=== PATIENT | female | born 1965 | race Caucasian/White ===

== ENCOUNTER 2020-06-07 17:28 | Inpatient (IN) | payer BC, OTHER ==
[~2020-06-07] VITALS: Ht 157.5 cm; Wt 104.4 kg
[~2020-06-07 17:28] MED LIST: HYDROCHLOROTH12.5 MG PO; LEVO50TA PO; METO-93 PO
--- NOTE | 2020-06-07 17:28 | NUR ---
INITIAL PT CONTACT. PT PRESENTS TO ED VIA EMS FROM [facility] C/O HYPOXIA AND +COVID. PT STATES SHE GOT +COVID RESULTS TODAY AND HAS BEEN EXPERIENCING A DRY COUGH, MILD SORE THROAT (GONE NOW) AND INTERMITTENT GOLDEN (NOT PRESENT). PT DENIES ANY OTHER COMPLAINTS. PT HYPOXIC ON ROOM AIR AT 81-82%. PT PLACED ON 2L VIA NASAL CANNULA AND O2 SAT INCREASED TO 92%. PT SITTING UPRIGHT ON GURNEY, NAD, VSS. PT DENIES ANY NEEDS AT THIS TIME. CALL LIGHT AND PERSONAL BELONGINGS WITHIN REACH. ERP AT BEDSIDE.
[2020-06-07] MEDS ORDERED: WARF2.5T32 PO (17:37)
[2020-06-07] MEDS ORDERED: WARF-36 PO (17:37)
--- NOTE | 2020-06-07 18:15 | NUR ---
PT O2 SATURATION NOTED TO BE AT 88-89%, SUPP O2 TURNED UP TO 3L, O2 SAT NOW 93-94%. NAD, RESPIRATIONS UNLABORED AND REGULAR. CALL LIGHT AND PERSONAL BELONGINGS WITHIN REACH. PT DENIES NEEDS AT THIS TIME.
[2020-06-07] MEDS ORDERED: ONDANSETRON ODT 4 MG PO PRN (18:30)
[2020-06-07] MEDS ORDERED: ACETAMINOPHEN 325 MG TABLET PO PRN (18:30)
[2020-06-07] MEDS ORDERED: BISACODYL 10 MG SUPP PR PRN (18:30)
[2020-06-07] MEDS ORDERED: POLYETHYLENE GLYCOL 17 GM PACKET PO PRN (18:30)
[2020-06-07] MEDS ORDERED: HEPARIN 5,000 UNITS/ML, 1ML SQ SCH (18:30)
[2020-06-07] MEDS ORDERED: CEFTRIAXONE PMX 1GM/50ML 50 ML ONE (18:37)
[2020-06-07] MEDS ORDERED: NS + 20MEQ KCL 1,000 ML IV ONE (18:44)
--- NOTE | 2020-06-07 18:49 | NUR ---
BEDSIDE REPORT TO RUBÉN SULLIVAN
[2020-06-07] MEDS: CEFTRIAXONE PMX 1GM/50ML 50 ML IV SCH (18:56)
[2020-06-07] MEDS: NS + 20MEQ KCL 1,000 ML IV SCH (19:34)
[2020-06-07] MEDS: AZITHROMYCIN 500 MG in SODIUM CHLORIDE 0.9% 250 ML IV SCH (19:38)
--- NOTE | 2020-06-07 19:50 | NUR ---
PT MOVED TO SIMPLE O2 MASK O2 SAT UP FROM 91% TO 95%. PT DENIES SOB, NADN. CONNECTED TO CARDIAC, BP AND O2 MONITORS. PT PROVIDED WITH MEAL. BED RAILS UP, CALL LIGHT IN REACH. ALL NEEDS MET AT THIS TIME.
--- NOTE | 2020-06-07 20:27 | NUR ---
FIRST ATTEMPT TO CALL REPORT.
--- NOTE | 2020-06-07 20:41 | NUR ---
SECOND ATTEMPT TO CALL REPORT
--- NOTE | 2020-06-07 20:57 | NUR ---
3RD ATTEMPT TO CALL REPORT.
[2020-06-07 21:32] VITALS: BP 124/76
[2020-06-08 01:59] VITALS: BP 123/80
[2020-06-08] MEDS: NS + 20MEQ KCL 1,000 ML IV SCH (05:49)
[2020-06-08 06:19] LABS: BASOPHILS % (AUTO) 1 % (0-1); EOSINOPHILS % (AUTO) 0 % (1-7); LYMPHOCYTES % (AUTO) 20 % (22-44); MEAN CORPUSCULAR HEMOGLOBIN 28.4 pg (27.0-34.8); MEAN CORPUSCULAR HGB CONC 32.8 g/dL (32.4-35.8); MEAN PLATELET VOLUME 7.7 fL (7.4-10.4); MONOCYTES % (AUTO) 9 % (2-9); NEUTROPHILS % (AUTO) 70 % (42-75); PLATELET COUNT 217 x10^3/uL (130-400); RED BLOOD COUNT 4.75 x10^6/uL (3.82-5.3)
[2020-06-08 06:28] LABS: ANION GAP 5 mmol/L (5-15); CALCIUM 8.3 mg/dL (8.5-10.1); CHLORIDE 110 mmol/L (98-107); CREATININE 0.65 mg/dL (0.55-1.02)
[2020-06-08 06:34] LABS: MD NO
[2020-06-08 07:13] VITALS: BP 158/90
[2020-06-08 07:52] LABS: C-REACTIVE PROTEIN, QUANT 6.8 mg/dL (0.02-0.49)
[2020-06-08] MEDS ORDERED: REMDESIVIR 200 MG in SODIUM CHLORIDE 0.9% 250 ML IVPB ONE (08:00)
[2020-06-08] MEDS: SENNA/DOCUSATE TABLET PO SCH (08:07)
[2020-06-08] MEDS: CHOLECALCIFEROL 5,000u TAB PO SCH (08:17)
[2020-06-08] MEDS: THIAMINE 100MG TABLET PO SCH (08:17)
[2020-06-08] MEDS: DEXAMETHASONE 4 MG/ML, 1ML IVPush SCH (08:17)
[2020-06-08] MEDS: ASCORBIC ACID 500 MG TABLET PO SCH ×3 (08:17→20:12)
[2020-06-08] MEDS: ZINC SULFATE 220 MG CAPSULE PO SCH (08:17)
[2020-06-08] MEDS ORDERED: WARFARIN 5 MG TABLET PO-COUM SCH (09:00)
[2020-06-08] MEDS ORDERED: WARFARIN 2.5 MG TABLET PO-COUM SCH (09:00)
[2020-06-08] MEDS ORDERED: METOPROLOL SUCCINATE 50 MG TAB.ER.24H PO SCH (09:00)
[2020-06-08] MEDS ORDERED: HEPARIN 5,000 UNITS/ML, 1ML SQ SCH (09:00)
[2020-06-08 09:10] LABS: INTERNATIONAL NORMALIZED RATIO 2.68 (0.93-1.1); PROTHROMBIN TIME 28.1 Seconds (9.6-11.5)
[2020-06-08 12:07] VITALS: BP 147/81
[2020-06-08] MEDS: CEFTRIAXONE PMX 1GM/50ML 50 ML IV SCH (16:39)
[2020-06-08] MEDS ORDERED: WARFARIN 2.5 MG TABLET PO-COUM ONE (18:00)
[2020-06-08] MEDS: AZITHROMYCIN 500 MG in SODIUM CHLORIDE 0.9% 250 ML IV SCH (18:17)
[2020-06-08 20:04] VITALS: BP 136/80
[2020-06-08] MEDS: GUAIFENESIN/DM 200-20MG, 10ML UDC PO PRN (20:12)
[2020-06-08] MEDS: MELATONIN 5 MG TABLET PO PRN (20:12)
[2020-06-09 00:32] VITALS: BP 115/72
[2020-06-09 07:02] LABS: INTERNATIONAL NORMALIZED RATIO 3.38 (0.93-1.1); PROTHROMBIN TIME 35.4 Seconds (9.6-11.5)
[2020-06-09 07:55] VITALS: BP 151/93
[2020-06-09] MEDS: ASCORBIC ACID 500 MG TABLET PO SCH ×3 (08:51→20:25)
[2020-06-09] MEDS: ZINC SULFATE 220 MG CAPSULE PO SCH (08:51)
[2020-06-09] MEDS: THIAMINE 100MG TABLET PO SCH (08:51)
[2020-06-09] MEDS: REMDESIVIR 100 MG in SODIUM CHLORIDE 0.9% 250 ML IVPB SCH (08:51)
[2020-06-09] MEDS: CHOLECALCIFEROL 5,000u TAB PO SCH (08:51)
[2020-06-09] MEDS: DEXAMETHASONE 4 MG/ML, 1ML IVPush SCH (08:52)
[2020-06-09] MEDS: SENNA/DOCUSATE TABLET PO SCH (08:56)
[2020-06-09 10:42] LABS: ANION GAP 7 mmol/L (5-15); CALCIUM 8.8 mg/dL (8.5-10.1); CHLORIDE 110 mmol/L (98-107)
[2020-06-09 10:43] LABS: ALANINE AMINOTRANSFERASE 43 U/L (12-78); ALBUMIN 2.8 g/dL (3.4-5.0); ALKALINE PHOSPHATASE 62 U/L (45-117); BILIRUBIN,TOTAL 0.5 mg/dL (0.2-1.0); CREATININE 0.69 mg/dL (0.55-1.02); TOTAL PROTEIN 7.1 g/dL (6.4-8.2)
[2020-06-09] MEDS ORDERED: ALBUTEROL HFA 90 MCG/SPRAY INH PRN (11:30)
[2020-06-09 13:46] VITALS: BP 131/81
[2020-06-09] MEDS: CEFTRIAXONE PMX 1GM/50ML 50 ML IV SCH (17:17)
[2020-06-09] MEDS ORDERED: WARFARIN 2 MG TABLET PO-COUM ONE (18:00)
[2020-06-09] MEDS: AZITHROMYCIN 500 MG in SODIUM CHLORIDE 0.9% 250 ML IV SCH (18:28)
[2020-06-09 18:40] VITALS: BP 121/78
[2020-06-09] MEDS: GUAIFENESIN/DM 200-20MG, 10ML UDC PO PRN (20:25)
[2020-06-09] MEDS: MELATONIN 5 MG TABLET PO PRN (20:25)
[2020-06-09] MEDS ORDERED: CALCIUM CARBONATE 500 MG TAB.CHEW PO PRN (20:30)
[2020-06-10 00:57] VITALS: BP 125/73
[2020-06-10 06:34] LABS: INTERNATIONAL NORMALIZED RATIO 3.38 (0.93-1.1); PROTHROMBIN TIME 35.4 Seconds (9.6-11.5)
[2020-06-10 06:48] LABS: CHLORIDE 109 mmol/L (98-107)
[2020-06-10 06:49] LABS: ALANINE AMINOTRANSFERASE 35 U/L (12-78); ALBUMIN 2.8 g/dL (3.4-5.0); ALKALINE PHOSPHATASE 62 U/L (45-117); ANION GAP 7 mmol/L (5-15); BILIRUBIN,TOTAL 0.5 mg/dL (0.2-1.0); CALCIUM 8.9 mg/dL (8.5-10.1); CREATININE 0.64 mg/dL (0.55-1.02)
[2020-06-10 07:46] VITALS: BP 151/89
[2020-06-10] MEDS: DEXAMETHASONE 4 MG/ML, 1ML IVPush SCH (09:07)
[2020-06-10] MEDS: ZINC SULFATE 220 MG CAPSULE PO SCH (09:14)
[2020-06-10] MEDS: CHOLECALCIFEROL 5,000u TAB PO SCH (09:14)
[2020-06-10] MEDS: ASCORBIC ACID 500 MG TABLET PO SCH ×3 (09:15→20:21)
[2020-06-10] MEDS: SENNA/DOCUSATE TABLET PO SCH (09:15)
[2020-06-10] MEDS: THIAMINE 100MG TABLET PO SCH (09:15)
[2020-06-10] MEDS: METOPROLOL SUCCINATE 25 MG TAB.ER.24H PO SCH (09:15)
[2020-06-10] MEDS: REMDESIVIR 100 MG in SODIUM CHLORIDE 0.9% 250 ML IVPB SCH (10:24)
[2020-06-10 13:31] VITALS: BP 147/84
[2020-06-10] MEDS ORDERED: WARFARIN 2.5 MG TABLET PO-COUM ONE (18:00)
[2020-06-10] MEDS: CEFTRIAXONE PMX 1GM/50ML 50 ML IV SCH (18:30)
[2020-06-10 19:00] VITALS: BP 144/84
[2020-06-10] MEDS: AZITHROMYCIN 500 MG in SODIUM CHLORIDE 0.9% 250 ML IV SCH (20:21)
[2020-06-10] MEDS: MELATONIN 5 MG TABLET PO PRN (23:09)
[2020-06-11 01:01] VITALS: BP 125/76
[2020-06-11 07:28] LABS: CHLORIDE 108 mmol/L (98-107)
[2020-06-11 07:32] LABS: INTERNATIONAL NORMALIZED RATIO 3.45 (0.93-1.1); PROTHROMBIN TIME 36.1 Seconds (9.6-11.5)
[2020-06-11 07:39] LABS: ALANINE AMINOTRANSFERASE 31 U/L (12-78); ALBUMIN 2.7 g/dL (3.4-5.0); ALKALINE PHOSPHATASE 53 U/L (45-117); ANION GAP 4 mmol/L (5-15); BILIRUBIN,TOTAL 0.6 mg/dL (0.2-1.0); CALCIUM 8.5 mg/dL (8.5-10.1); CREATININE 0.61 mg/dL (0.55-1.02); TOTAL PROTEIN 6.5 g/dL (6.4-8.2)
[2020-06-11 08:14] VITALS: BP 126/80
[2020-06-11] MEDS ORDERED: POTASSIUM CHLORIDE 20 MEQ TAB.ER.PRT PO ONE (08:30)
[2020-06-11] MEDS: REMDESIVIR 100 MG in SODIUM CHLORIDE 0.9% 250 ML IVPB SCH (09:37)
[2020-06-11] MEDS: CHOLECALCIFEROL 5,000u TAB PO SCH (09:37)
[2020-06-11] MEDS: ASCORBIC ACID 500 MG TABLET PO SCH ×3 (09:37→21:06)
[2020-06-11] MEDS: METOPROLOL SUCCINATE 25 MG TAB.ER.24H PO SCH (09:37)
[2020-06-11] MEDS: DEXAMETHASONE 4 MG/ML, 1ML IVPush SCH (09:37)
[2020-06-11] MEDS: THIAMINE 100MG TABLET PO SCH (09:37)
[2020-06-11] MEDS: ZINC SULFATE 220 MG CAPSULE PO SCH (09:37)
[2020-06-11] MEDS: SENNA/DOCUSATE TABLET PO SCH (09:38)
[2020-06-11] MEDS: BENZONATATE 100 MG CAPSULE PO SCH ×3 (11:26→21:06)
[2020-06-11 15:04] VITALS: BP 124/77
[2020-06-11] MEDS: CEFTRIAXONE PMX 1GM/50ML 50 ML IV SCH (17:57)
[2020-06-11] MEDS ORDERED: WARFARIN 1 MG TABLET PO-COUM ONE (18:00)
[2020-06-11] MEDS: AZITHROMYCIN 500 MG in SODIUM CHLORIDE 0.9% 250 ML IV SCH (18:48)
[2020-06-11 19:44] VITALS: BP 136/75
[2020-06-11] MEDS: MELATONIN 5 MG TABLET PO PRN (21:06)
[2020-06-12 02:30] VITALS: BP 135/81
[2020-06-12 06:46] LABS: BASOPHILS % (AUTO) 1 % (0-1); EOSINOPHILS % (AUTO) 0 % (1-7); LYMPHOCYTES % (AUTO) 16 % (22-44); MEAN CORPUSCULAR HEMOGLOBIN 28.9 pg (27.0-34.8); MEAN CORPUSCULAR HGB CONC 33.6 g/dL (32.4-35.8); MONOCYTES % (AUTO) 6 % (2-9); NEUTROPHILS % (AUTO) 77 % (42-75); PLATELET COUNT 328 x10^3/uL (130-400); RED BLOOD COUNT 4.68 x10^6/uL (3.82-5.3)
[2020-06-12 06:56] LABS: INTERNATIONAL NORMALIZED RATIO 3.94 (0.93-1.1); PROTHROMBIN TIME 41.2 Seconds (9.6-11.5)
[2020-06-12 06:58] LABS: ALBUMIN 2.7 g/dL (3.4-5.0); CALCIUM 8.6 mg/dL (8.5-10.1)
[2020-06-12 07:05] LABS: ALANINE AMINOTRANSFERASE 29 U/L (12-78); ALKALINE PHOSPHATASE 55 U/L (45-117); BILIRUBIN,TOTAL 0.5 mg/dL (0.2-1.0); CREATININE 0.61 mg/dL (0.55-1.02); TOTAL PROTEIN 6.4 g/dL (6.4-8.2)
[2020-06-12 07:17] LABS: ANION GAP 3 mmol/L (5-15); CHLORIDE 109 mmol/L (98-107)
[2020-06-12 07:30] VITALS: BP 115/71
[2020-06-12 07:30] LABS: MD SCAN
[2020-06-12] MEDS ORDERED: HOLD COUMADIN MC PRN (09:00)
[2020-06-12] MEDS ORDERED: METO25TA91 PO (10:32)
[2020-06-12] MEDS ORDERED: CEFD300C37 PO (10:32)
[2020-06-12] MEDS ORDERED: DOXY-162 PO (10:32)
[2020-06-12] MEDS ORDERED: BENZ-17 PO (10:32)
[2020-06-12] MEDS ORDERED: DEXA6TAB6 PO (10:32)
[2020-06-12] MEDS: REMDESIVIR 100 MG in SODIUM CHLORIDE 0.9% 250 ML IVPB SCH (10:33)
[2020-06-12] MEDS: BENZONATATE 100 MG CAPSULE PO SCH (10:33)
[2020-06-12] MEDS: THIAMINE 100MG TABLET PO SCH (10:34)
[2020-06-12] MEDS: DEXAMETHASONE 4 MG/ML, 1ML IVPush SCH (10:34)
[2020-06-12] MEDS: METOPROLOL SUCCINATE 25 MG TAB.ER.24H PO SCH (10:34)
[2020-06-12] MEDS: ZINC SULFATE 220 MG CAPSULE PO SCH (10:34)
[2020-06-12] MEDS: SENNA/DOCUSATE TABLET PO SCH (10:34)
[2020-06-12] MEDS: CHOLECALCIFEROL 5,000u TAB PO SCH (10:34)
[2020-06-12] MEDS: ASCORBIC ACID 500 MG TABLET PO SCH (10:34)
[2020-06-12 13:32] VITALS: BP 146/79
== END 2020-06-12 16:39 | disposition home or self-care (01) | DRG 177 ==
LOC: ED 17:30 → EDIP 17:31 → ED 18:56 → 4EST 21:21
PROVIDERS: ADMIT Family Medicine; ATTEND Hospitalist
PROC: XW033E5 Introduction of Remdesivir Anti-infective into Peripheral Vein, Percutaneous Approach, New Technology Group 5 (ICD-10-PCS; principal; 2020-06-08)
DX: U07.1 COVID-19 (principal); J12.89 Other viral pneumonia; J96.01 Acute respiratory failure with hypoxia; Z68.41 Body mass index [BMI] 40.0-44.9, adult; E66.9 Obesity, unspecified; E87.6 Hypokalemia; F41.9 Anxiety disorder, unspecified; I10 Essential (primary) hypertension; R00.1 Bradycardia, unspecified; Z79.01 Long term (current) use of anticoagulants; Z86.718 Personal history of other venous thrombosis and embolism; Z88.5 Allergy status to narcotic agent
CPT/HCPCS: 36415; 71045; 80048; 80053; 83615; 85025; 85379; 85610; 86140; 87040; 93005; 99285; G0378; J0456; J0696; J1100; J3480; J7050; U0003